=== PATIENT | male | born 1995 | race Hispanic/Latino ===

== ENCOUNTER 2025-07-29 08:27 | Outpatient (CLI) | payer BC | END 2025-07-29 08:28 | disposition home or self-care (01) | LOC: CSHSLEEP 08:27 | PROVIDERS: ATTEND Internal Medicine Critical Care Medicine | DX: G47.33 Obstructive sleep apnea (adult) (pediatric) (principal); R06.83 Snoring; I10 Essential (primary) hypertension | CPT/HCPCS: 95800 ==

== ENCOUNTER 2025-09-21 08:48 | Outpatient (CLI) | payer BC | END 2025-09-21 08:49 | disposition home or self-care (01) | LOC: CSHSLEEP 08:48 | PROVIDERS: ATTEND Internal Medicine Critical Care Medicine | DX: G47.33 Obstructive sleep apnea (adult) (pediatric) (principal); R06.83 Snoring; I10 Essential (primary) hypertension | CPT/HCPCS: 95811 ==